=== PATIENT | male | born 1995 | race Caucasian/White ===

== ENCOUNTER 2018-03-28 20:07 | Emergency (ER) | payer MEDICAID ==
[2018-03-28] MEDS: HYDROCODONE/APAP (10/325) TAB PO (20:50)
== END 2018-03-28 22:41 | disposition home or self-care (01) ==
LOC: FTE 22:41
DX: T14.8XXA Other injury of unspecified body region, initial encounter (principal); M62.830 Muscle spasm of back; V63.5XXA Driver of heavy transport vehicle injured in collision with car, pick-up truck or van in traffic accident, initial encounter
CPT/HCPCS: 71046; 72040; 72100; 99284-25